=== PATIENT | female | born 1975 | race Caucasian/White ===

== ENCOUNTER → 2017-08-17 | Outpatient (CLI) | payer OTHER ==
[~2017-08-17] MED LIST: IBUP600T44 PO
== END | disposition home or self-care (01) ==
LOC: C.LABSPEC 16:41
PROVIDERS: ATTEND Orthopaedic Surgery
DX: L02.511 Cutaneous abscess of right hand (principal)

== ENCOUNTER → 2017-08-17 | Outpatient (CLI) | payer OTHER | END | disposition home or self-care (01) | LOC: C.PATHSPEC 17:08 | PROVIDERS: ATTEND Orthopaedic Surgery | DX: M86.641 Other chronic osteomyelitis, right hand (principal) ==

== ENCOUNTER 2017-08-23 19:35 | Inpatient (IN) | payer OTHER ==
[~2017-08-23] VITALS: Ht 167.6 cm; Wt 65.7 kg
[2017-08-23] MEDS ORDERED: OXYCODONE HCL IR 5 MG TAB (IMMEDIATE RELEASE) PO STA (19:59)
[2017-08-23] MEDS ORDERED: AMPICILLIN/SULBACTAM SOD INJ 3,000 MG in SODIUM CHLORIDE 0.9% 100ML 100 ML IV ONE (20:00)
[2017-08-23] MEDS ORDERED: CYAN100020 PO (20:32)
[2017-08-23] MEDS ORDERED: BIOT1CAP3 PO (20:32)
[2017-08-23] MEDS ORDERED: PEDICHW50 PO (20:32)
[2017-08-23] MEDS ORDERED: FERR1TAB23 PO (20:32)
[2017-08-23] MEDS ORDERED: CHOL1000 PO (20:32)
[2017-08-23] MEDS ORDERED: CALC500C73 PO (20:32)
[2017-08-23] MEDS ORDERED: ASCO500T3 PO (20:32)
[2017-08-23 20:34] LABS: BASO % 0.3 %; BASO ABS # 0.02 K/uL (0-0.2); COMPLETE YES; EOS % 2.5 %; HEMATOCRIT 38.6 % (37-47); IG% 0.3 %; LYMPH % 38.5 %; LYMPH ABS # 2.74 K/uL (1.2-3.4); MEAN CORPUSCULAR HGB CONC 34.5 g/dl (32-36); MEAN PLATELET VOLUME 10.7 fL (7.4-10.4); MONO % 8.3 %; NEUT % 50.1 %; PLATELET COUNT 209 K/uL (130-400); RED BLOOD COUNT 4.15 M/uL (4.2-5.4); WHITE BLOOD COUNT 7.12 K/uL (4.8-10.8)
[2017-08-23 20:50] LABS: BUN/CREATININE RATIO 13.2 (10-20); CALCIUM 8.6 mg/dl (8.5-10.1); CREATININE 0.55 mg/dl (0.60-1.20); POTASSIUM 3.6 mmol/L (3.5-5.1)
--- NOTE | 2017-08-23 21:01 | EMERGENCY ROOM VISIT NOTE ---
History Report prepared by Miladis: Shayy Dumont Under the Supervision of: Dr. Regulo Dc M.D. First contact with patient: 19:39 Chief Complaint: WOUND INFECTION Stated Complaint: THUMB PAIN/INFECTION History of Present Illness The patient is a 42 year old female who presents to the Emergency Room with complaints of a constant wound infection beginning a few days ago. The patient states that she had a surgery on her thumb 3 days ago. She reports that it showed osteomyelitis and grew out Peptostreptococcus. She notes that she was seen in [place] today and was sent here to the ED for orthopedics. The patient complains of thumb pain and swelling. Pt denies LOC, headache, fevers, chills, diaphoresis, visual changes, neck pain, chest pain, breathing difficulties, nausea, vomiting, abdominal pain, back pain, melena, hematochezia, urinary symptoms, numbness, weakness, lymphadenopathy, rash, or other complaints. She notes that she has had some white yellow drainage. Source of History: patient Onset: a few days ago Position: other (right thumb) Quality: other (swelling) Timing: constant Note: The patient complains of thumb pain and swelling. Review of Systems See HPI for pertinent positives and negatives. A total of ten systems were reviewed and were otherwise negative. Past Medical & Surgical Medical Problems: (1) Osteomyelitis Family History No pertinent family history stated. Social History Smoking Status: Current Every Day Smoker Marital Status: single Occupation Status: employed Current/Historical Medications Scheduled Ascorbic Acid (Vitamin C), 1 TAB PO DAILY Biotin (Biotin), 1 CAP PO DAILY Calcium Carbonate (Calcium), 1 TAB PO DAILY Cholecalciferol (Vitamin D3), 1 TAB PO DAILY Cyanocobalamin (Vitamin B12), 1 TAB PO DAILY Ferrous Sulfate (Iron), 1 TAB PO DAILY Pediatric Multiple Vitamin W/ (Flintstones Chewable), 2 TABS PO QAM Allergies Coded Allergies: Tramadol (Verified Allergy, Unknown, Nausea, 08/23/17) Physical Exam Vital Signs Date Time Temp Pulse Resp B/P (MAP) Pulse Ox O2 Delivery O2 Flow Rate FiO2 08/23/17 19:37 36.5 99 16 123/65 98 Room Air Physical Exam GENERAL: Awake, alert, well-appearing, in no distress HENT: Normocephalic, atraumatic. Oropharynx unremarkable. EYES: Normal conjunctiva. Sclera non-icteric. NECK: Supple. No nuchal rigidity. FROM. No JVD. RESPIRATORY: Clear to auscultation. CARDIAC: Regular rate, normal rhythm. Extremities warm and well perfused. Pulses equal. ABDOMEN: Soft, non-distended. No tenderness to palpation. No rebound or guarding. No masses. RECTAL: Deferred. MUSCULOSKELETAL: Chest examination reveals no tenderness. The back is symmetrical on inspection without obvious abnormality. There is no CVA tenderness to palpation. No joint edema. Thumb exam reveals significant swelling , tenderness to palpation, sutures in place on distal aspect ROM of interphalangeal joint limited secondary to pain LOWER EXTREMITIES: Calves are equal size bilaterally and non-tender. No edema. No discoloration. NEURO: Normal sensorium. No sensory or motor deficits noted. SKIN: No rash or jaundice noted. Medical Decision & Procedures Laboratory Results 08/23/17 20:13 Red Blood Count 4.15, Mean Corpuscular Volume 93.0, Mean Corpuscular Hemoglobin 32.0, Mean Corpuscular Hemoglobin Concent 34.5, Mean Platelet Volume 10.7, Neutrophils (%) (Auto) 50.1, Lymphocytes (%) (Auto) 38.5, Monocytes (%) (Auto) 8.3, Eosinophils (%) (Auto) 2.5, Basophils (%) (Auto) 0.3, Neutrophils # (Auto) 3.57, Lymphocytes # (Auto) 2.74, Monocytes # (Auto) 0.59, Eosinophils # (Auto) 0.18, Basophils # (Auto) 0.02 08/23/17 20:13 Test 08/23/17 20:13 White Blood Count 7.12 K/uL (4.8-10.8) Red Blood Count 4.15 M/uL (4.2-5.4) Hemoglobin 13.3 g/dL (12.0-16.0) Hematocrit 38.6 % (37-47) Mean Corpuscular Volume 93.0 fL (80-100) Mean Corpuscular Hemoglobin 32.0 pg (25-34) Mean Corpuscular Hemoglobin Concent 34.5 g/dl (32-36) Platelet Count 209 K/uL (130-400) Mean Platelet Volume 10.7 fL (7.4-10.4) Neutrophils (%) (Auto) 50.1 % Lymphocytes (%) (Auto) 38.5 % Monocytes (%) (Auto) 8.3 % Eosinophils (%) (Auto) 2.5 % Basophils (%) (Auto) 0.3 % Neutrophils # (Auto) 3.57 K/uL (1.4-6.5) Lymphocytes # (Auto) 2.74 K/uL (1.2-3.4) Monocytes # (Auto) 0.59 K/uL (0.11-0.59) Eosinophils # (Auto) 0.18 K/uL (0-0.5) Basophils # (Auto) 0.02 K/uL (0-0.2) RDW Standard Deviation 46.5 fL (36.4-46.3) RDW Coefficient of Variation 13.6 % (11.5-14.5) Immature Granulocyte % (Auto) 0.3 % Immature Granulocyte # (Auto) 0.02 K/uL (0.00-0.02) Anion Gap 7.0 mmol/L (3-11) Est Creatinine Clear Calc Drug Dose 122.1 ml/min Estimated GFR () 132.2 Estimated GFR (Non- 114.1 BUN/Creatinine Ratio 13.2 (10-20) Calcium Level 8.6 mg/dl (8.5-10.1) Laboratory results reviewed by me Medications Administered Medications (Trade) Dose Ordered Sig/Louis Route Start Time Stop Time Status Last Admin Dose Admin Ampicillin Sodium/ Sulbactam Sodium 3000 mg/Sodium Chloride 108 ml @ 200 mls/hr ONE ONCE IV 08/23/17 20:00 08/23/17 20:32 DC 08/23/17 20:33 200 MLS/HR Oxycodone HCl (Roxicodone Immediate Rel Tab) 5 mg NOW STAT PO 08/23/17 19:59 08/23/17 20:01 DC 08/23/17 20:16 5 MG ED Course 1939: The patient was evaluated in room B10. A complete history and physical exam was performed. 1958: Oxycodone HCl 5mg PO. 1999: Ampicillin Sodium/Sulbactam Sodium 3000mg/Sodium Chloride 108ml @ 200mls/ hr. 2003: Received and reviewed the patient's records. []: Discussed the patient's case with Dr. Lopez of [facility]. The patient will be evaluated for further treatment and disposition. []: Upon reexamination, the patient was doing well. I discussed the test results and treatment plan with her. The patient will be evaluated for further management. Medical Decision Triage Nursing notes reviewed. The patient's presentation and history were concerning for worsening Infection. Etiologies such as cellulitis, abscess, MRSA infection, osteomyelitis, as well as others were entertained. The patient was evaluated. I did speak to her treating physician at the [facility] Emergency Room. The patient received a dose of IV vancomycin. Her cultures here show a Peptostreptococcus. Despite being on penicillin she is getting worse. She is more painful. She does note purulent drainage. I discussed her culture results and issues with our ED pharmacist and we concluded that IV Unasyn would be a good choice to cover the infection in addition to the IV vancomycin that she received. The patient was given a dose of oxycodone. I did consult with [facility], Dr. Morrow. The case was discussed. He will admit the patient for further treatment. Blood Pressure Screening Patient's blood pressure: Normal blood pressure Blood pressure disposition: Did not require urgent referral Consults Time Called: 2034 Consulting Physician: Dr. Morrow [facility] Returned Call: [phone] Discussed the patient's case. The patient will be evaluated for further treatment and disposition. Impression Primary Impression: Osteomyelitis Additional Impression: Failure of outpatient treatment Scribe Attestation The scribe's documentation has been prepared under my direction and personally reviewed by me in its entirety. I confirm that the note above accurately reflects all work, treatment, procedures, and medical decision making performed by me. Departure Information Dispostion Being Evaluated By Hospitalist Referrals No Doctor, Assigned (PCP) Patient Instructions My [facility] Problem Qualifiers
[2017-08-23] MEDS ORDERED: NURSING VERBAL MED ORDER ONE (21:15)
[2017-08-23 22:15] VITALS: BP 124/75; PULSE 89; TEMP 37.2; O2SAT 99; Ht 167.6 cm; Wt 65.7 kg
[2017-08-23] MEDS ORDERED: OXYCODONE/ACETAMINOPHEN 5-325 TAB PO PRN (22:45)
[2017-08-23] MEDS: SODIUM CHLORIDE 0.9% 1000ML 1,000 ML IV SCH (23:48)
[2017-08-23] MEDS: OXYCODONE/ACETAMINOPHEN 5-325 TAB PO PRN (23:56)
[2017-08-24] MEDS: AMPICILLIN/SULBACTAM SOD INJ 3,000 MG in SODIUM CHLORIDE 0.9% 100ML 100 ML IV SCH ×4 (01:28→19:45)
[2017-08-24 07:20] VITALS: BP 98/64; PULSE 79; TEMP 36.7; O2SAT 96
[2017-08-24] MEDS: OXYCODONE/ACETAMINOPHEN 5-325 TAB PO PRN ×2 (07:21→19:35)
[2017-08-24] MEDS: DOCUSATE SODIUM 100 MG CAP PO SCH ×2 (09:00→19:48)
--- NOTE | 2017-08-24 10:01 | HISTORY & PHYSICAL EXAMINATION ---
DATE OF ADMISSION: 08/23/2017 REASON FOR ADMISSION: Infection, right thumb. HISTORY OF PRESENT ILLNESS: The patient is a 42-year-old white female who recently underwent a procedure on her right thumb by Dr. Isaac approximately a week ago. She states that after several days it was noted that her thumb was getting more swollen and more erythematous and painful. Cultures were taken of the wound and it was found that she was growing peptostreptococcus and antibiotics were called in for the patient and she started taking her antibiotics. She states that the antibiotics did not help in anyway and the thumb continued to worsen. She states that she had small amounts of purulence that was coming out from underneath the fingernail and stated to me this morning that when she was in the restroom last night, she had warm water running over the thumb and had a moderate amount of purulence come out from underneath the fingernail. She had come to the Emergency Room and obviously was admitted for further IV antibiotics. PAST MEDICAL HISTORY: History of benign thyroid nodules. Denies hypertension, diabetes mellitus, tuberculosis, hepatitis, COPD, rheumatic fever. PAST SURGICAL HISTORY: She had a gastric bypass approximately 6 months ago and the above-noted procedure on her right thumb approximately 1 week ago. FAMILY HISTORY: Noncontributory. SOCIAL HISTORY: The patient is a smoker, alcohol rarely. She is single. MEDICATIONS: Vitamin C 1 tab p.o. daily, biotin 1 cap p.o. daily, calcium 1 tab p.o. daily, vitamin D3 one tab p.o. daily, vitamin B12 one tab p.o. daily, ferrous sulfate 1 tab p.o. daily and pediatric multivitamin 2 tabs p.o. q.a.m. ALLERGIES: TRAMADOL CAUSING NAUSEA. REVIEW OF SYSTEMS: No recent fevers, chills or night sweats. She does have explained weight loss due to her gastric bypass which she states that she was approximately 220 pounds and that she is now down to 140. No flu or cold-like symptoms. No increased cough or sputum production. No shortness of breath. No chest pain, chest pressure or irregular heartbeat. No abdominal pain. No nausea, vomiting or diarrhea. No lightheaded or dizzy sensations. No history of CVA or TIA. PHYSICAL EXAMINATION: GENERAL: The patient is a well-developed, well-nourished white female who is alert and oriented x3 and in no acute distress, pleasant and cooperative. SKIN: Warm and dry. Turgor is good. HEENT: Head is normocephalic, atraumatic. There is no scleral icterus and no injection noted at this time. Nasal airway is patent. Oral mucosa is pink and moist. NECK: Supple. HEART: Regular rate and rhythm. LUNGS: Clear to auscultation. ABDOMEN: Soft, round and nontender. Bowel sounds are present x4. GENITALIA AND RECTAL: Not performed at this time. EXTREMITIES: On examination of the patient's right upper extremity, she has noted swelling and erythema of the right thumb. There is some crusting around the wound from her previous surgery but no overt purulence coming from it at this time. The swelling is moderately tense and she is very tender on palpation. She has some mild pain at the distal joint; however, she is able to move the thumb quite well. She has some mild tenderness on palpation over the MCP but not overtly so. Erythema is mainly around the distal tip of the thumb. She has no pain at the CMC joint. She has good range of motion of her wrist without discomfort. There is no erythema noted up the thumb or hand and no red striations, etc., up the forearm. Right elbow and shoulder are within normal limits without discomfort and rest of the extremities are essentially benign at this time. There is no gross motor or sensory loss at this time. She does have some decreased sensation in the thumb tip due to swelling. ASSESSMENT: Infection, right thumb. PLAN: The patient will be added on to the surgery schedule for possible I&D of the right thumb. Dr. Isaac is planning on coming over to see the patient later today to make that final decision for further surgery versus continued IV antibiotics. She is currently on Unasyn and will be continued on IV antibiotics until that point.
--- NOTE | 2017-08-24 10:54 | Progress Note ---
Progress Note Date of Service Aug 24, 2017. Progress Note ID Consult Dictated #[id number] A/P: 1. thumb osteo -Continue unasyn for now, for I&D, please send culture -Await OR findings, culture, will adjust abx at that time -Thank you
--- NOTE | 2017-08-24 11:05 | INFECT. DISEASE CONSULTATION ---
DATE OF CONSULTATION: 08/24/2017 HISTORY OF PRESENT ILLNESS: This is a 42-year-old female who was admitted after she had worsening erythema and purulent drainage from her right thumb. She states that she began with an infection in January of 2017. She did receive a course of Keflex from her primary care physician and she had resolution of her infection. In April, her daughter was and she states at that time, she had no infection and she was able to go the nail salon and have acrylic nails place. She states after having her acrylic nails removed in she began having worsening thumb pain once again. She was placed in a short course of antibiotics, but self discontinued these. She continued to have problems and subsequently was evaluated by orthopedic surgery. [facility] debridement. She was found to have osteomyelitis. Cultures at that time grew peptostreptococcus. She was given penicillin, but it is unclear if she was taking her antibiotics as prescribed. She had worsening symptoms and presented to the ER yesterday. She does admit to some purulent drainage from the finger nail bed yesterday. She was placed on Unasyn and she is tolerating this well. She has been afebrile. She denies any fevers or chills. She denies any shortness of breath, cough, nausea, vomiting, diarrhea or abdominal pain. She is tolerating oral antibiotics. She denies any antibiotic allergies. Her remaining review of systems reviewed and is unremarkable. PAST MEDICAL HISTORY: Significant for thyroid nodules. PAST SURGICAL HISTORY: Significant for gastric bypass and right thumb surgery last week. FAMILY HISTORY: Noncontributory. SOCIAL HISTORY: Significant for daily tobacco use. She denies any drug use and states occasional alcohol use. ALLERGIES: SHE HAS ALLERGIES TO TRAMADOL. MEDICATIONS: Include Colace, Unasyn and Percocet. PHYSICAL EXAMINATION: VITAL SIGNS: She is afebrile, pulse 79, respiratory rate 16, blood pressure 98/64, and oxygen saturation is 96%-99% on room air. GENERAL: She is awake, alert and oriented x3. She is in no acute distress. HEENT: Mucous membranes are moist. Extraocular muscles are intact. HEART: Regular. LUNGS: Clear. ABDOMEN: Soft, nontender, and nondistended. EXTREMITIES: There is no lower extremity edema. Examination of the thumb reveals sutures to be intact. There is no purulent drainage on my examination; however, there is erythema, tenderness and swelling. LABORATORY STUDIES: CBC yesterday reveals a white blood cell count 7.1, hemoglobin 13.3 and platelets 209. Chemistry panel reveals a sodium of 141, potassium 3.6, chloride 111, bicarbonate 23, BUN 7, and creatinine 0.5. Again, previous culture grew peptostreptococcus. There is no imaging to review. ASSESSMENT AND PLAN: Thumb osteomyelitis. At this time, she will remain on Unasyn. She is n.p.o. for potential I&D and I would agree with this. Additional culture should be obtained and antibiotics will be adjusted based on those results. [facility]
[2017-08-24] MEDS: SODIUM CHLORIDE 0.9% 1000ML 1,000 ML IV SCH ×2 (11:38→19:28)
--- NOTE | 2017-08-24 14:02 | Medical Consult ---
History General Date of Service: Aug 24, 2017. Stated Complaint: Thumb Pain/Infection HPI The patient is a 42 year old female who presents to [facility] with complaints of Thumb Pain/Infection. The patient's primary care provider is Leroy Isaac MD. Pt is readmitted with progression of thumb infection while on outpt treatment, her thumb is reddened, swollen, planning on I&D by ortho, ID has weighed in on antibiotics. The pt otherwise has no other issues with health according to her Review of Systems Constitutional: denies: chills, diaphoresis Eyes: denies: eye pain, tearing ENT: denies: ear pain, ear discharge Cardiovascular: denies: chest pain, chest pressure Respiratory: denies: cough, shortness of breath Gastrointestinal: denies: abdominal pain, constipation, diarrhea Musculoskeletal: denies: arthralgias, neck pain Integumentary: denies: rash, redness Neurologic: denies: dizziness, general weakness Psychiatric: denies: anxiety, depression Endocrine: denies: cold intolerance, heat intolerance Family History Parent: Hypertension Social History Hx Tobacco Use In Past Year?: Yes (1/2-1PPD) Smoking Status: Current Every Day Smoker Marital status: single Occupational Status: employed Allergies Coded Allergies: Tramadol (Verified Allergy, Unknown, Nausea, 08/23/17) Current Medications Reported Home Medications Medications Dose Route/Sig Max Daily Dose Days Date Category Flintstones Chewable (Pediatric Multiple Vitamin W/) 1 Chw Chw 2 Tabs PO QAM 08/23/17 Reported Calcium (Calcium Carbonate) Unknown Strength Chw 1 Tab PO DAILY 08/23/17 Reported Vitamin C (Ascorbic Acid) Unknown Strength Tab 1 Tab PO DAILY 08/23/17 Reported Biotin Unknown Strength Cap 1 Cap PO DAILY 08/23/17 Reported Iron (Ferrous Sulfate) Unknown Strength Tab 1 Tab PO DAILY 08/23/17 Reported Vitamin B12 (Cyanocobalamin) Unknown Strength Tab 1 Tab PO DAILY 08/23/17 Reported Vitamin D3 (Cholecalciferol) Unknown Strength Tab 1 Tab PO DAILY 08/23/17 Reported Physical Physical Exam Vital Signs: Date Time Temp Pulse Resp B/P (MAP) Pulse Ox O2 Delivery O2 Flow Rate FiO2 08/24/17 07:20 36.7 79 16 98/64 (75) 96 Room Air 08/24/17 07:15 Room Air 08/23/17 23:30 Room Air 08/23/17 22:15 37.2 89 16 124/75 99 Room Air 08/23/17 21:58 97 15 10/80 98 08/23/17 19:37 36.5 99 16 123/65 98 Room Air General Appearance: WELL-APPEARING, uncomfortable Head: NORMOCEPHALIC, ATRAUMATIC Eyes: PERRLA, NO DISCHARGE Respiratory: BREATH SOUNDS NORMAL, CLEAR TO AUSCULTATION Cardiovasular: REGULAR RATE/RHYTHM, NORMAL S1S2, NO M/G/R Abdomen: NON TENDER, NORMAL BOWEL SOUNDS, NO REBOUND Back: NORMAL INSPECTION, NO MIDLINE TENDERNESS Upper Extremities: other (very swollen thumb, suture inplace along margin of nail, and erythema to dorsal pip area) Neuro: ALERT, ORIENTED x 3 Psychiatric: NORMAL AFFECT, NO SUICIDAL IDEATION Diagnostics Labs Results Past 24 Hours Test 08/23/17 20:13 08/24/17 06:00 Range/Units White Blood Count 7.12 4.8-10.8 K/uL Red Blood Count 4.15 4.2-5.4 M/uL Hemoglobin 13.3 12.0-16.0 g/dL Hematocrit 38.6 37-47 % Mean Corpuscular Volume 93.0 80-100 fL Mean Corpuscular Hemoglobin 32.0 25-34 pg Mean Corpuscular Hemoglobin Concent 34.5 32-36 g/dl Platelet Count 209 130-400 K/uL Mean Platelet Volume 10.7 7.4-10.4 fL Neutrophils (%) (Auto) 50.1 % Lymphocytes (%) (Auto) 38.5 % Monocytes (%) (Auto) 8.3 % Eosinophils (%) (Auto) 2.5 % Basophils (%) (Auto) 0.3 % Neutrophils # (Auto) 3.57 1.4-6.5 K/uL Lymphocytes # (Auto) 2.74 1.2-3.4 K/uL Monocytes # (Auto) 0.59 0.11-0.59 K/uL Eosinophils # (Auto) 0.18 0-0.5 K/uL Basophils # (Auto) 0.02 0-0.2 K/uL RDW Standard Deviation 46.5 36.4-46.3 fL RDW Coefficient of Variation 13.6 11.5-14.5 % Immature Granulocyte % (Auto) 0.3 % Immature Granulocyte # (Auto) 0.02 0.00-0.02 K/uL Sodium Level 141 136-145 mmol/L Potassium Level 3.6 3.5-5.1 mmol/L Chloride Level 111 98-107 mmol/L Carbon Dioxide Level 23 21-32 mmol/L Anion Gap 7.0 3-11 mmol/L Blood Urea Nitrogen 7 7-18 mg/dl Creatinine 0.55 0.60-1.20 mg/dl Est Creatinine Clear Calc Drug Dose 122.1 ml/min Estimated GFR () 132.2 Estimated GFR (Non- 114.1 BUN/Creatinine Ratio 13.2 10-20 Random Glucose 91 70-99 mg/dl Calcium Level 8.6 8.5-10.1 mg/dl Impression Assessment and Plan 42 F with thumb cellulitis and concern for possible osteomyelitis, failing outpt therapy Previous culture with peptostreptococcus, on unasyn per ID and will possibly have I&D with ID managing the antibiotic choice, there are no other current active medical problems, will sign off but be available for questions if they arise
[2017-08-24 15:25] LABS: BASO % 0.2 %; BASO ABS # 0.01 K/uL (0-0.2); COMPLETE YES; EOS % 3.5 %; HEMATOCRIT 35.2 % (37-47); IG% 0.2 %; LYMPH % 38.6 %; LYMPH ABS # 2.41 K/uL (1.2-3.4); MEAN CELL VOLUME 93.6 fL (80-100); MEAN CORPUSCULAR HEMOGLOBIN 31.6 pg (25-34); MEAN CORPUSCULAR HGB CONC 33.8 g/dl (32-36); MONO % 7.1 %; NEUT % 50.4 %; PLATELET COUNT 181 K/uL (130-400); RED BLOOD COUNT 3.76 M/uL (4.2-5.4); WHITE BLOOD COUNT 6.24 K/uL (4.8-10.8)
[2017-08-24 15:30] VITALS: BP 95/62; PULSE 76; TEMP 36.6; O2SAT 99
[2017-08-24] MEDS ORDERED: LIDOCAINE HCL 1% 20 ML VIAL ONE (16:35)
--- NOTE | 2017-08-24 18:11 | PROGRESS NOTE ---
DATE: 08/24/2017 SUBJECTIVE: Seen at the bedside today. Currently has complaints of not wanting to be in the hospital and contemplating signing out AMA. She has increased pain and swelling in the right thumb. OBJECTIVE: Right thumb examination does show moderate swelling in the tip of the fingers. The surgical incision does show a small amount of purulent drainage. She has some redness of the dorsal aspect of the thumb and she has mild pain on the IP motion of the thumb. She has negative Kanavel's signs. ASSESSMENT: Status post saucerization of osteomyelitis, right thumb with persistent infection. PLAN: I discussed findings and treatment options. I feel she likely has some reaccumulation of pus in the region of the surgical site. We discussed options of operative irrigation, debridement versus I&D at the bedside. Given that the operating room is full it is unlikely we will be able to perform surgical treatment tonight. We discussed options of I&D at the bedside with continued antibiotics and continued monitoring and she is agreeable to this. DESCRIPTION OF OPERATION: I injected 5 mL of lidocaine with a single subcutaneous approach on the volar aspect of the thumb for a digital block. Once the finger was anesthetized, I prepped the finger in a standard fashion, drapes were applied. I went to the patient's previous stitches and I opened the patient's surgical wound. This resulted in decompression of fluid and purulent discharge was evacuated. This was sent for culture. This was spread under the nail and performed an incision and drainage in the paronychial region where she had some additional traction. Packing was applied and the incisions were left open. The patient was placed in a dry sterile dressing and tolerated the procedure well. Plan will be repeat wound check in the morning with removal of packing. I did recommend that she stays for at least an additional 24 hours of antibiotics if possible. I appreciate infectious disease input.
[2017-08-25 00:05] VITALS: BP 111/74; PULSE 88; TEMP 36.7; O2SAT 99
[2017-08-25] MEDS: AMPICILLIN/SULBACTAM SOD INJ 3,000 MG in SODIUM CHLORIDE 0.9% 100ML 100 ML IV SCH ×4 (01:40→19:52)
[2017-08-25] MEDS: OXYCODONE/ACETAMINOPHEN 5-325 TAB PO PRN ×3 (01:42→20:00)
[2017-08-25] MEDS: SODIUM CHLORIDE 0.9% 1000ML 1,000 ML IV SCH ×2 (05:47→19:52)
[2017-08-25 07:23] VITALS: BP 95/61; PULSE 69; TEMP 36.9; O2SAT 97
[2017-08-25] MEDS: DOCUSATE SODIUM 100 MG CAP PO SCH ×2 (08:34→19:52)
--- NOTE | 2017-08-25 09:44 | Orthopedic Progress Note ---
Orthopedic Progress Note Date of Service Aug 25, 2017. Subjective Reports: feeling well, complaints (Main complaint is wanting to go home.), pain controlled w PO medications Additional Notes: States the thumb is feeling much better today after the bedside I & D yesterday by Dr. Isaac. She feels she is able to move the thumb without the pain she had prior to the procedure. Objective N/V intact, capillary refill less than 2 sec., A&O x3 Right hand: thumb has mild erythema at the IP joint dorsally. No obvious fluctuance noted. The 2 sites of packing were removed the distal aspect of the thumb with mild serosanguinous, mildly purulent d/c from under the nail. + tenderness at the distal aspect of the thumb and the thumbnail. Date Time Temp Pulse Resp B/P (MAP) Pulse Ox O2 Delivery O2 Flow Rate FiO2 08/25/17 07:23 36.9 69 20 95/61 (72) 97 Room Air 08/25/17 00:05 36.7 88 16 111/74 (86) 99 Room Air 08/24/17 23:25 Room Air 08/24/17 15:30 36.6 76 20 95/62 (73) 99 Room Air 08/24/17 15:20 Room Air Laboratory Results 24 Hours: Test 08/24/17 15:14 White Blood Count 6.24 K/uL Red Blood Count 3.76 M/uL Hemoglobin 11.9 g/dL Hematocrit 35.2 % Mean Corpuscular Volume 93.6 fL Mean Corpuscular Hemoglobin 31.6 pg Mean Corpuscular Hemoglobin Concent 33.8 g/dl Platelet Count 181 K/uL Mean Platelet Volume 10.0 fL Neutrophils (%) (Auto) 50.4 % Lymphocytes (%) (Auto) 38.6 % Monocytes (%) (Auto) 7.1 % Eosinophils (%) (Auto) 3.5 % Basophils (%) (Auto) 0.2 % Neutrophils # (Auto) 3.15 K/uL Lymphocytes # (Auto) 2.41 K/uL Monocytes # (Auto) 0.44 K/uL Eosinophils # (Auto) 0.22 K/uL Basophils # (Auto) 0.01 K/uL Additional Notes: GRAM STAIN Final 08/25/17-0843 RESULT MANY WBCs SEEN RARE GRAM NEGATIVE BACILLI FEW GRAM POSITIVE COCCI RARE EPITHELIAL CELLS OR AER/HAMILTON CULT Results Pending Assessment & Plan Assessment: Right thumb cellulitis and distal phalanx osteomyelitis Plan: Continue Unasyn. The patient will probably benefit from continued IV antibiotics and changes could be made as needed when the cultures have been completed. Discussed the risk of the patient leaving prior to proper antibiotic choices and treatment plans made. D/C planning is uncertain at this time. Inhouse Planning Pain Management: Percocet Discharge Planning Discharge Planning: uncertain
[2017-08-25 15:27] VITALS: BP 101/69; PULSE 72; TEMP 36.9; O2SAT 98
[2017-08-25] MEDS ORDERED: NURSING VERBAL MED ORDER ONE ×2 (18:15→20:15)
[2017-08-25] MEDS ORDERED: LORAZEPAM INJ 0.5 MG in SYRINGE 0.75 ML IV ONE (19:00)
[2017-08-25 23:45] VITALS: BP 99/64; PULSE 58; TEMP 37; O2SAT 97
[2017-08-26] MEDS: SODIUM CHLORIDE 0.9% 1000ML 1,000 ML IV SCH (05:44)
[2017-08-26 07:27] VITALS: BP 105/70; PULSE 76; TEMP 36.7; O2SAT 98
[2017-08-26] MEDS: DOCUSATE SODIUM 100 MG CAP PO SCH (08:09)
[2017-08-26] MEDS: OXYCODONE/ACETAMINOPHEN 5-325 TAB PO PRN (08:09)
--- NOTE | 2017-08-26 11:01 | Orthopedic Progress Note ---
Orthopedic Progress Note Date of Service Aug 26, 2017. Subjective Reports: feeling well, pain controlled w PO medications, Denies: complaints, nausea / vomiting Additional Notes: States the thumb feels better overall. Feels the swelling and tenderness are both down. Anxious to go home. Objective N/V intact, capillary refill less than 2 sec., incision C/D/I, A&O x3 Right hand: thumb swelling appears to be lessened, especially from recent pictures the patient shows. No obvious purulence noted with dressing change. Mild serosanguinous drainage on the gauze dressing. Tender at the distal aspect of the thumb and the volar aspect of the distal phalanx. Little tenderness at the IP joint and no pain elicited with PROM or AROM of the IP joint. Date Time Temp Pulse Resp B/P (MAP) Pulse Ox O2 Delivery O2 Flow Rate FiO2 08/26/17 07:27 36.7 76 19 105/70 (82) 98 Room Air 08/26/17 07:15 Room Air 08/25/17 23:45 37.0 58 14 99/64 (76) 97 Room Air 08/25/17 23:30 Room Air 08/25/17 15:27 36.9 72 16 101/69 (80) 98 Room Air 08/25/17 15:15 Room Air Laboratory Results 24 Hours: GRAM STAIN Final 08/25/17-43 RESULT MANY WBCs SEEN RARE GRAM NEGATIVE BACILLI FEW GRAM POSITIVE COCCI RARE EPITHELIAL CELLS OR AER/HAMILTON CULT Preliminary 08/25/17-1313 NO GROWTH TO DATE. 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 Agee. Will give patient a dose of ertapenem 1 gram IV today. Plan for Ertapenem 1 gram IV Q24 for 42 days through a PICC line. [place] place [place] [facility] [place] [facility] [place]'s can be set up for tomorrow, will d/c patient home today. She has a follow up set up with Dr. Isaac in 2 days. Inhouse Planning Pain Management: Percocet Discharge Planning Discharge Planning: home with IV medication (When antibiotic choice is made.) Pain Management: Percocet
--- NOTE | 2017-08-26 11:04 | Discharge Instructions ---
Discharge Instructions Date of Service Aug 26, 2017. Admission Reason for Admission: Thumb Pain/Infection Discharge Discharge Diagnosis / Problem: Right thumb cellulitis/osteomyelitis distal phalanx Discharge Goals Goal(s): Decrease discomfort, Improve disease control Activity Recommendations Activity Limitations: per Instructions/Follow-up section . Instructions / Follow-Up Instructions / Follow-Up ACTIVITY RECOMMENDATIONS: * Avoid lifting anything heavier than a medium water glass until your first post operative visit. SPECIAL CARE INSTRUCTIONS: * Your bandage should be left in place until your follow up with Dr. Isaac or if it becomes saturated. * Some drainage onto the dressing may occur. This is normal. * If the bandage feels excessively tight, you may loosen the elastic bandage. Then call the physician's office for further instructions. * If possible, keep your hand elevated above the level of your heart for the first 2 post operative days. You may use a sling if necessary. * You should move your fingers regularly (50-100 motions per hour) unless otherwise instructed. SPECIAL PRECAUTIONS: * If you notice increased drainage, fever over 101 degrees F. or severe, unremitting pain, call your physician/office at . * You may have been prescribed pain medication. If you experience nausea and/or skin rash, discontinue this medication and contact our office for an alternative medication. FOLLOW UP VISIT: If appointment is not already scheduled: Please call [facility] to make a follow-up appointment at . Current Hospital Diet Patient's current hospital diet: Regular Diet Discharge Diet Recommended Diet: Regular Diet Pending Studies Studies pending at discharge: no Medical Emergencies . Who to Call and When: Medical Emergencies: If at any time you feel your situation is an emergency, please call 120 immediately. . Non-Emergent Contact Non-Emergency issues call your: Surgeon Call Non-Emergent contact if: temperature is above 101, your pain is not controlled, your pain is worsening, wound has increased drainage, wound has increased redness, wound has increased pain . "Provider Documentation" section prepared by Johnny Castrejon. . Grinding Room Supervisor Recommendations Grinding Room Supervisor Recommendations: Please call Dr. Agee and Dr. Hidalgo's office for a follow up for your IV antibiotics. VTE Core Measure Inpt VTE Proph given/why not?: Treatment not indicated
[2017-08-26] MEDS ORDERED: OXYC-57 PO (11:09)
[2017-08-26] MEDS ORDERED: ERTA1INJ IV (11:09)
[2017-08-26] MEDS ORDERED: ERTAPENEM IV 1 GM in SODIUM CHLOR 0.9% AD-VAN 50ML 50 ML IV SCH (11:30)
[2017-08-26 12:33] VITALS: BP 105/70; PULSE 76; TEMP 36.7; O2SAT 98
--- NOTE | 2017-08-30 23:09 | Discharge Summary ---
Orthopedic Discharge Summary Admission Date/Reason Aug 23, 2017 at 21:10 Thumb Pain/Infection. Discharge Date/Disposition Aug 26, 2017 Home with services Diagnosis Principal Diagnosis: Right thumb infection, osteomyelitis Procedure(s) Performed I & D of right thumb done at bedside by Dr. Isaac Consultations Infectious Disease Internal medicine Medication Reconciliation New Medications: Ertapenem Sodium (Invanz) 1 Gm Inj 1 GM IV Q24H for 42 Days, VIAL Oxycodone/Acetaminophen 5MG/325MG (Percocet 5MG/325MG) Tab 1-2 TAB PO Q6H PRN for Pain, #20 TAB PAIN Continued Medications: Ascorbic Acid (Vitamin C) Unknown Strength Tab 1 TAB PO DAILY Biotin (Biotin) Unknown Strength Cap 1 CAP PO DAILY Calcium Carbonate (Calcium) Unknown Strength Chw 1 TAB PO DAILY Cholecalciferol (Vitamin D3) Unknown Strength Tab 1 TAB PO DAILY, TAB Cyanocobalamin (Vitamin B12) Unknown Strength Tab 1 TAB PO DAILY Ferrous Sulfate (Iron) Unknown Strength Tab 1 TAB PO DAILY Pediatric Multiple Vitamin W/ (Flintstones Chewable) 1 Chw Chw 2 TABS PO QAM, TAB Admission Physical Exam As per Admitting History & Physical. Hospital Course The patient was admitted on 08.23.17 for possible worsening of a right thumb infection s/p I & D performed by Dr. Isaac. She was started on Unasyn IV. On 08.24.17, a bedside I & D was performed by Dr. Isaac because the OR rooms were unavailable that evening. On 08.25.17, the patient was set up for a PICC line and cultures were being done for proper IV tx. On 08.26.17, the gram stain results and pending cultures were discussed with Dr. Agee and the patient was d/ c'd home on IV Invanz after a dose was given that day. Discharge Instructions Please refer to the electronic Patient Visit Report (Discharge Instructions) for additional information. ACTIVITY RECOMMENDATIONS: * Avoid lifting anything heavier than a medium water glass until your first post operative visit. SPECIAL CARE INSTRUCTIONS: * Your bandage should be left in place until follow up appointment 2 days after discharge. * Some drainage onto the dressing may occur. This is normal. * If the bandage feels excessively tight, you may loosen the elastic bandage. Then call the physician's office for further instructions. * If possible, keep your hand elevated above the level of your heart for the first 2 post operative days. You may use a sling if necessary. * You should move your fingers regularly (50-100 motions per hour) unless otherwise instructed. SPECIAL PRECAUTIONS: * If you notice increased drainage, fever over 101 degrees F. or severe, unremitting pain, call your physician/office at . * You may have been prescribed pain medication. If you experience nausea and/or skin rash, discontinue this medication and contact our office for an alternative medication. FOLLOW UP VISIT: If appointment is not already scheduled: Please call [facility] to make a follow-up appointment after your surgery at .
== END 2017-08-26 13:57 | disposition home health service (06) | DRG 603 ==
LOC: C.EDB 19:37 → C.MSW 21:10 → ENRESERV 21:43
PROVIDERS: ADMIT Orthopaedic Surgery Sports Medicine; ATTEND Orthopaedic Surgery
PROC: 0H9FXZZ Drainage of Right Hand Skin, External Approach (ICD-10-PCS; principal; 2017-08-14)
DX: L03.011 Cellulitis of right finger (principal); M86.641 Other chronic osteomyelitis, right hand; F17.200 Nicotine dependence, unspecified, uncomplicated; Z91.19 Patient's noncompliance with other medical treatment and regimen; Z98.84 Bariatric surgery status